=== PATIENT | male | born 1940 | race Caucasian/White ===

== ENCOUNTER 2017-07-23 13:38 | Observation (INO) | payer OTHER ==
[2017-07-23 14:11] LABS: PLATELET COUNT 204 10^3/uL (150-400)
[2017-07-23] MEDS ORDERED: ASPIRIN 81 MG CHEWABLE TAB PO ONE (14:12)
[2017-07-23] MEDS ORDERED: NITROGLYCERIN 0.4 MG BTL SL ONE (14:12)
--- NOTE | 2017-07-23 14:14 | CPEKG ---
Heart Rate: 78 RR Interval: 769 P-R Interval: 200 QRSD Interval: 160 QT Interval: 416 QTC Interval: 474 P [place]: 18 QRS [place]: -34 T Wave [place]: 121 EKG Severity - ABNORMAL ECG - EKG Impression: SINUS RHYTHM EKG Impression: PROBABLE LEFT ATRIAL ABNORMALITY EKG Impression: LEFT BUNDLE BRANCH BLOCK Electronically Signed By: Klaus Dickinson 23-Jul-2017 14:43:28
[2017-07-23] MEDS ORDERED: NITROGLYCERIN 2% 1 GM PACKET TP ONE (14:21)
--- NOTE | 2017-07-23 14:29 | EDPHY ---
H & P Stated Complaint: dizziness started today 1230, denies chest pain or shortness of breath Time Seen by Provider: 07/23/17 13:56 HPI/ROS: This patient complains of a woozy feeling in his head. Patient described the lightheadedness at 12:30 p.m. When he stood up from a seated position. This is occurred fleetingly in the past but he seemed to have persistent lightheadedness. He also describes a mild pressure headache that is generalized in location similar to prior headaches and has difficult this time describing exactly what he is feeling but because of his symptoms he checked his blood pressure at home was surprised to see that he was hypertensive-180s over 90s or issues usually 120s over 60s. Because of this dizzy feeling and his hypertension he came in for evaluation. He denies any other associated symptoms but does not recall feeling quite like this in the past. He does report slight lightheadedness. ROS: Constitutional: No recent fevers or chills. No significant fatigue. HEENT: He reports no recent URI symptoms or other HEENT complaints. No nasal congestion. Neuro: No focal numbness tingling weakness. No confusion. No word-finding difficulties. No vision changes. Pulmonary: No shortness of breath. No cough. Cardiovascular: He denies any chest pain. No heart palpitations. No arm pain jaw pain or neck pain. No pallor or other complaints. GI: No abdominal pain. No nausea or vomiting. Endocrine: No diaphoresis Integumentary: No complaints Psychiatric: No complaints Complete review of symptoms is otherwise negative. Source: Patient, Family (He is accompanied by his who drove him here by private vehicle) Exam Limitations: No limitations - Personal History Current Tetanus Diphtheria and Acellular Pertussis (TDAP): Unsure - Medical/Surgical History PMH: Otherwise healthy. He does not recall having a recent EKG. He does not recall being told that he has a left bundle branch block in the past. No prior history of hypertension Family history is negative for premature coronary artery disease Other PMH: denies medical or surgical - Family History Significant Family History: No pertinent family hx - Social History Smoking Status: Never smoked Alcohol Use: None Drug Use: None - Physical Exam Exam: Vital signs notable for mild hypertension 187/81. Other vitals are normal General Appearance: Alert, no distress. Eyes: Pupils equal and round no pallor or injection. ENT, Mouth: Mucous membranes moist. Respiratory: There are no retractions, lungs are clear to auscultation. Cardiovascular: Regular rate and rhythm. No murmur gallop rub. No peripheral edema. Gastrointestinal: Abdomen is soft and nontender, no masses, bowel sounds normal. Neurological: Cranial nerves 2-12 intact. He maintains normal cerebellar exam as evidence by symmetric rapid hand movements bilaterally. No pronator drift. GCS 15 with no focal deficits. Skin: Warm and dry, no rashes. Musculoskeletal: Neck is supple nontender. Extremities are symmetrical, full range of motion. Psychiatric: Mood and affect are normal. DIFFERENTIAL DIAGNOSIS: After history and physical exam differential diagnosis was considered for hypertensive emergency, viral illness, tension headache, anxiety, ischemic cardiac disease, metabolic disarray, benign positional vertigo , central vertigo Constitutional: Initial Vital Signs Temperature (C) 36.4 C 07/23/17 13:49 Heart Rate 82 07/23/17 13:49 Respiratory Rate 18 07/23/17 13:49 Blood Pressure 187/81 H 07/23/17 13:49 O2 Sat (%) 97 07/23/17 13:49 O2 Delivery Mode Room Air O2 (L/minute) 2 Allergies/Adverse Reactions: No Known Allergies Allergy (Unverified 07/23/17 13:48) Home Medications: Medication Instructions Recorded Multivitamin (OTC) 03/28/13 Medical Decision Making - Diagnostics EKG Interpretation: 12 lead EKG performed at 2:01 p.m. Reveals sinus rhythm at 78 Intervals: P R of 200, QRS of 160, QTC of 474 [place]: P of 80, QRS of -34, T of 121 Overall assessment sinus rhythm with left bundle branch block when compared to an EKG dated 01/28/2005 a bundle branch block is new. A repeat EKG performed at 14 30 reveals sinus rhythm at 81 with left bundle branch block with no interval change. ED Course/Re-evaluation: Discussion: Patient with vague symptoms including dizziness and hypertension with left bundle branch block as EKG. It is difficult to know if this is a longstanding bundle-branch block as his most recent EKG was dated 2004. Is a new bundle branch block since then. However his current symptoms do not sound ischemic in nature. Given his hypertension today and bundle-branch block and treat him with nitrates does see there is any interval change in his EKG or in his other symptoms. 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 IV Aspirin 324 Sublingual nitroglycerin followed by 0.5 in nitropaste Repeat EKG with no interval change by my interpretation. Cardiology was paged for consultation in this case at 2:32 p.m.. I spoke with Alexey Muhammad of [facility] at 2:50 p.m.. He agrees with plan for admission observation on telemetry. He requests hospitals admission with consult by cardiology. I spoke with Dr. Sanford, hospitalist [facility] accepts this patient for admission. Counseled patient regarding his current test results and plan for admission for further evaluation, serial cardiac enzymes and cardiology consult. At 3:15 p.m. Patient is comfortable with no active symptoms. He has been stable on the monitor throughout his stay. A bed is requested and pending - Data Points Laboratory Results: Laboratory Results 07/23/17 14:09 07/23/17 14:09 07/23/17 07/23/17 14:09 14:09 WBC 5.57 10^3/uL 10^3/uL (3.80-9.50) RBC 4.83 10^6/uL 10^6/uL (4.40-6.38) Hgb 15.3 g/dL g/dL (13.7-17.5) Hct 43.2 % % (40.0-51.0) MCV 89.4 fL fL (81.5-99.8) MCH 31.7 pg pg (27.9-34.1) MCHC 35.4 g/dL g/dL (32.4-36.7) RDW 13.1 % % (11.5-15.2) Plt Count 204 10^3/uL 10^3/uL (150-400) MPV 8.9 fL fL (8.7-11.7) Neut % (Auto) 53.7 % % (39.3-74.2) Lymph % (Auto) 33.9 % % (15.0-45.0) [place] % (Auto) 10.2 % % (4.5-13.0) Eos % (Auto) 1.3 % % (0.6-7.6) Baso % (Auto) 0.7 % % (0.3-1.7) Nucleat RBC Rel Count 0.0 % % (0.0-0.2) Absolute Neuts (auto) 2.99 10^3/uL 10^3/uL (1.70-6.50) Absolute Lymphs (auto) 1.89 10^3/uL 10^3/uL (1.00-3.00) Absolute Monos (auto) 0.57 10^3/uL 10^3/uL (0.30-0.80) Absolute Eos (auto) 0.07 10^3/uL 10^3/uL (0.03-0.40) Absolute Basos (auto) 0.04 10^3/uL 10^3/uL (0.02-0.10) Absolute Nucleated RBC 0.00 10^3/uL 10^3/uL (0-0.01) Immature Gran % 0.2 % % (0.0-1.1) Immature Gran # 0.01 10^3/uL 10^3/uL (0.00-0.10) Sodium 140 mEq/L mEq/L (135-145) Potassium 4.4 mEq/L mEq/L (3.5-5.2) Chloride 99 mEq/L mEq/L (97-110) Carbon Dioxide 25 mEq/l mEq/l (22-31) Anion Gap 16 mEq/L mEq/L (8-16) BUN 16 mg/dL mg/dL (7-23) Creatinine 0.9 mg/dL mg/dL (0.7-1.3) Estimated GFR > 60 Glucose 91 mg/dL mg/dL (70-100) Calcium 9.7 mg/dL mg/dL (8.5-10.4) Troponin I < 0.012 ng/mL ng/mL (0.000-0.034) Medications Given: Discontinued Medications Aspirin (Aspirin) 324 mg PO EDNOW ONE Stop: 07/23/17 14:13 Last Admin: 07/23/17 14:16 Dose: 324 mg Nitroglycerin (Nitrostat) 0.4 mg SL EDNOW ONE Stop: 07/23/17 14:13 Last Admin: 07/23/17 14:19 Dose: 1 tab Nitroglycerin (Nitro-Bid 2%) 0.5 inch TP EDNOW ONE Stop: 02/15/18 14:22 Last Admin: 07/23/17 14:28 Dose: 0.5 inch Departure - Departure Disposition: [facility] Inpatient Acute Clinical Impression: Lightheadedness, Left bundle branch block Hypertension Qualifiers: Hypertension type: unspecified Qualified Code(s): I10 - Essential (primary) hypertension Condition: Good Referrals: Tyler Montez MD [Primary Care Provider] - As per Instructions
--- NOTE | 2017-07-23 14:32 | CPEKG ---
Heart Rate: 81 RR Interval: 741 P-R Interval: 204 QRSD Interval: 152 QT Interval: 404 QTC Interval: 469 P [place]: 33 QRS [place]: -30 T Wave [place]: 121 EKG Severity - ABNORMAL ECG - EKG Impression: SINUS RHYTHM EKG Impression: LEFT BUNDLE BRANCH BLOCK Electronically Signed By: Klaus Dickinson 23-Jul-2017 14:43:17
--- NOTE | 2017-07-23 16:15 | PDGENHP ---
History and Physical History and Physical: CC: Pressure in the head HISTORY: This patient was feeling well until this morning when he started feel a lightheaded symptom that did not feel orthostatic and did not feel like he was going to fall or pain out, but he really describes more as a pressure in the head. There is no vertigo, and there was no headache and no neurologic abnormality symptom lo. He denies any come palpitations chest pain cough shortness of breath fevers nausea or any other symptoms with this. He has never experienced this syndrome before. He has had no change in medications, does not use alcohol, has not had nausea vomiting and has had good fluid intake recently. Despite the epidemic of flu and cold here he has not had any symptoms to suggest anything like that or any other infectious illness. Additionally he does mention to me that over period of months he has started to cut off the top of his socks because he is getting sock lines, though he denies any pain in his legs any shortness of breath, any pleuritic pains. There is no history of heart or lung illness at all At the emergency room in [place] the patient was noted to have significant hypertension. He has no previous history of hypertension but has not had a blood pressure check for over a year. He has not used any decongestants or any other stimulants, does not drink alcohol or have anything else that would cause blood pressure that way ROS: A comprehensive 10 system review revealed no other significant findings PAST MEDICAL HISTORY: Obesity Diverticulosis Colon polyps Kidney stones FAMILY MEDICAL HISTORY: Breast and gastric cardia insulinoma as SOCIAL HISTORY: lives with his is here with him Has never smoked or used alcohol Retired from working at [employer]. Had some exposures but has never been known to have any kind of illness related to his exposures there. MEDICATIONS: The patients list has been reconciled by our clinical pharmacist in the EMR. I have reviewed the list and ordered appropriate medicines. PHYSICAL EXAMINATION: Vital Signs: Initial blood pressure systolic 180 for diastolics okay. The systolic has drifted spontaneously down to 160 now. Other vitals normal no fever Director Of Research: Sinus rhythm Examination: General: alert, oriented, good mentation, relaxed Skin: warm, dry, good color, no rash HEENT: normal Neck: no mass or jvd Resps: relaxed Lungs: clear breath sounds Heart: regular, no murmur Abdomen: soft, nondistended, nontender, +BS, no mass Upper Extremities: normal Lower Extremities: Very mild bilateral ankle, edema, warm No Bleeding or bruising Neurologic: normal speech/language, normal film spooler, no focal weakness IV site: looks normal LABORATORY DATA: Unremarkable CBC metabolic panel and troponin RADIOLOGY STUDIES: None done as of yet 12 LEAD EKG: A 12 lead EKG was done at the [facility] emergency room. At this time I am unable to get into the EKG software, but the ER doctor did inform me that there was left bundle branch block which was new since 10 years ago ASSESSMENT: -symptomatic severe hypertension, new onset of hypertension at this time; no evidence of end-organ injury at present though would consider the possibility of hypertensive left ventricular disease -new LBBB -trace bipedal edema with a history of the patient noticing the same at home over several months; consider hypertensive heart disease or potentially pulmonary hypertension from sleep apnea as possible causes -obesity PLANS: -place on obs on residential monitor -begin antiHTN therapy; a diuretic might be a good choice to start with since he does have some slight edema so use lisinopril and hydrochlorothiazide for now -repeat troponins and EKG since he has a new left bundle branch block but doubt that there is anything here that is a new coronary syndrome; would only do stress testing or other risk stratification at this time if there was something more significant either symptom lo or on repeat blood testing -will get an echo as he has some by pedal ankle edema. Possible causes could include hypertensive heart disease or in a man of his stature sleep apnea and pulmonary hypertension I have reviewed the patient's case in detail with Dr. Klaus Dickinson I have reviewed the patient's past medical records as part of this assessment, including prior clinic records with diagnoses, blood tests, vital signs
[2017-07-23] MEDS ORDERED: ONDANSETRON 4 MG/2 ML VIAL IVP PRN (19:25)
[2017-07-23] MEDS ORDERED: ACETAMINOPHEN 325 MG TAB PO PRN (19:25)
[2017-07-23] MEDS ORDERED: ZOLPIDEM TARTRATE 5 MG TAB PO PRN (19:25)
[2017-07-23] MEDS ORDERED: LISINOPRIL 10 MG TAB PO ONE (21:30)
--- NOTE | 2017-07-23 23:39 | PDGENHP ---
History and Physical History and Physical: CC: Pressure in the head HISTORY: This patient was feeling well until this morning when he started feel a lightheaded symptom that did not feel orthostatic and did not feel like he was going to fall or pain out, but he really describes more as a pressure in the head. There is no vertigo, and there was no headache and no neurologic abnormality symptom lo. He denies any come palpitations chest pain cough shortness of breath fevers nausea or any other symptoms with this. He has never experienced this syndrome before. He has had no change in medications, does not use alcohol, has not had nausea vomiting and has had good fluid intake recently. Despite the epidemic of flu and cold here he has not had any symptoms to suggest anything like that or any other infectious illness. Additionally he does mention to me that over period of months he has started to cut off the top of his socks because he is getting sock lines, though he denies any pain in his legs any shortness of breath, any pleuritic pains. There is no history of heart or lung illness at all At the emergency room in [place] the patient was noted to have significant hypertension. He has no previous history of hypertension but has not had a blood pressure check for over a year. He has not used any decongestants or any other stimulants, does not drink alcohol or have anything else that would cause blood pressure that way ROS: A comprehensive 10 system review revealed no other significant findings PAST MEDICAL HISTORY: Obesity Diverticulosis Colon polyps Kidney stones FAMILY MEDICAL HISTORY: Breast and gastric cardia insulinoma as SOCIAL HISTORY: lives with his is here with him Has never smoked or used alcohol Retired from working at [employer]. Had some exposures but has never been known to have any kind of illness related to his exposures there. MEDICATIONS: The patients list has been reconciled by our clinical pharmacist in the EMR. I have reviewed the list and ordered appropriate medicines. PHYSICAL EXAMINATION: Vital Signs: Initial blood pressure systolic 180 for diastolics okay. The systolic has drifted spontaneously down to 160 now. Other vitals normal no fever Keyseater Operator: Sinus rhythm Examination: General: alert, oriented, good mentation, relaxed Skin: warm, dry, good color, no rash HEENT: normal Neck: no mass or jvd Resps: relaxed Lungs: clear breath sounds Heart: regular, no murmur Abdomen: soft, nondistended, nontender, +BS, no mass Upper Extremities: normal Lower Extremities: Very mild bilateral ankle, edema, warm No Bleeding or bruising Neurologic: normal speech/language, normal coroner, no focal weakness IV site: looks normal LABORATORY DATA: Unremarkable CBC metabolic panel and troponin RADIOLOGY STUDIES: None done as of yet 12 LEAD EKG: A 12 lead EKG was done at the [facility] emergency room. At this time I am unable to get into the EKG software, but the ER doctor did inform me that there was left bundle branch block which was new since 10 years ago ASSESSMENT: -symptomatic severe hypertension, new onset of hypertension at this time; no evidence of end-organ injury at present though would consider the possibility of hypertensive left ventricular disease -new LBBB with last EKG 10+ yrs ago -trace bipedal edema with a history of the patient noticing the same at home over several months; consider hypertensive heart disease or potentially pulmonary hypertension from sleep apnea as possible causes -obesity PLANS: -place on obs on monitoring and evaluation advisor -begin antiHTN therapy; a diuretic might be a good choice to start with since he does have some slight edema so use lisinopril and hydrochlorothiazide for now -repeat troponins and EKG since he has a new left bundle branch block but doubt that there is anything here that is a new coronary syndrome; would only do stress testing or other risk stratification at this time if there was something more significant either symptom lo or on repeat blood testing -will get an echo as he has some by pedal ankle edema. Possible causes could include hypertensive heart disease or in a man of his stature sleep apnea and pulmonary hypertension I have reviewed the patient's case in detail with Dr. Klaus Dickinson I have reviewed the patient's past medical records as part of this assessment, including prior clinic records with diagnoses, blood tests, vital signs
[2017-07-24 07:25] VITALS: O2SAT 93
[2017-07-24] MEDS ORDERED: LISINOPRIL/HCTZ 10/12.5 MG 1 EA TAB PO ONE (08:00)
--- NOTE | 2017-07-24 08:45 | CPEKG ---
Heart Rate: 61 RR Interval: 984 P-R Interval: 204 QRSD Interval: 158 QT Interval: 488 QTC Interval: 492 P [place]: 15 QRS [place]: -37 T Wave [place]: 119 EKG Severity - ABNORMAL ECG - EKG Impression: SINUS RHYTHM EKG Impression: LEFT BUNDLE BRANCH BLOCK Electronically Signed By: Alexey Muhammad 24-Jul-2017 09:43:40
[2017-07-24] MEDS ORDERED: CHOLECALCIFEROL VIT D3 1,000 UNITS TAB PO SCH (09:00)
[2017-07-24] MEDS ORDERED: VITAMIN B COMPLEX 1 EA CAP/TAB PO SCH (09:00)
[2017-07-24] MEDS ORDERED: CALCIUM CARBONATE 500 MG TAB PO SCH (09:00)
[2017-07-24] MEDS ORDERED: MULTIVITAMINS 1 EACH TAB PO SCH (09:00)
[2017-07-24] MEDS ORDERED: ASPIRIN 81 MG CHEWABLE TAB PO SCH (09:00)
[2017-07-24] MEDS ORDERED: REGADENOSON 0.4 MG/5 ML SYR IVP ONE (10:39)
--- NOTE | 2017-07-24 13:02 | CPR ---
[f rep st] NONINVASIVE CARDIAC PROCEDURE REPORT DATE OF PROCEDURE: 07/24/2017 PROCEDURE PERFORMED: Lexiscan nuclear stress test. REASON FOR TEST: Hypertension, left bundle branch block, and shortness of breath. PREPROCEDURE FINDINGS: Resting EKG showed a left bundle branch block with a ventricular rate of 65, sinus rhythm. Resting blood pressure 136/70. Resting heart rate 65. Oxygen saturation 96%. He had complaints of back discomfort. No chest pain or shortness of breath. STRESS PORTION: Lexiscan was injected rapidly, followed by saline flush. Cardiolite was then inject ed, followed by saline flush. He did feel flushed, with headache and shortness of breath. Peak hear t rate 80. Peak blood pressure 120/64. Oxygen saturation 98%. There were no EKG changes. RECOVERY: He did spontaneously recover. Resting blood pressure 130/74. Resting heart rate 77. Oxy gen saturation 98%. His headache did go away, as did his shortness of breath. He was given caffeine . At this time, he currently is stable for nuclear imaging. /[id number]/MODL
[2017-07-24 13:32] VITALS: BP 143/74; PULSE 72; RESP 12; TEMP 97.6
--- NOTE | 2017-07-24 13:47 | PDCARCONS ---
Cardiology Consult Reason for Consult: Pressure in head (which corresponded to elevated blood pressure) and "new" LBBB pattern on ECG Chief Complaint: new blood pressure issues Requesting Physician: Hospitalist Team History of Present Illness: Patient is a 77 y/o male with unremarkable past cardiovascular history (no CAD, HTN, HLP, or DM), who presented to [facility] ER with complaints of pressure in his head. No complaints of chest pains or pressure, no PND or orthopnea, no dyspnea, diaphoresis, or dizziness. Symptoms were noted with dinner the night before, and trial outside with cooler air did not alleviate symptoms. Blood pressure at home was noted to more elevated than is typical for the patient, and so ER visit was sought. Today, the patient is feeling very well. No further head discomfort is noted, but blood pressure continues to be more elevated than the patient has noted in the past. No mention of "bundle branch block" was noted in the past (annual PCP follow up note with Dr. Andrea Montez was reviewed with no mention of LBBB pattern to the ECG in the note. , present with the patient today, did not recall any report of abnormal ECG either. 12 point review of systems outside of that which was mentioned above, was unremarkable. History Information - Allergies/Home Medication List Allergies/Adverse Reactions: No Known Allergies Allergy (Unverified 07/23/17 13:48) Home Medications: Aspirin [Aspirin 81mg (*)] 81 mg PO DAILY 07/23/17 [Last Taken 07/23/17] Calcium Carbonate [Oyster Shell Calcium 500 mg (*)] 500 mg PO DAILY 07/23/17 [ Last Taken 07/23/17] Cholecalciferol Vit D3 [Vitamin D3 (*)] 1,000 units PO DAILY 07/23/17 [Last Taken 07/23/17] Cyanocobalamin/Folic AC/Vit B6 [B Complex-Folic Acid Tablet] 1 each PO DAILY [Last Taken 07/23/17] Multivitamins [Multivitamin (*)] 1 each PO DAILY 07/23/17 [Last Taken 07/23/17] I have personally reviewed and updated: family history, medical history, social history, surgical history Past Medical History: - Past Medical History Additional medical history: nephrolithiasis - Surgical History Reports: no pertinent surgical hx - Family History Positive for: hypertension - Social History Smoking Status: Never smoked Alcohol Use: None Drug Use: None Cardiac History - Cardiac History Cardiac Risk Factors: age > 65, male Timing/Duration: Hours Severity: moderate Severity Scale: 4 Location: other (head pressure) Activities at Onset: none Modifying Factors: improves with: rest Associated Symptoms: denies symptoms NIKIA Risk Evaluation age greater or equal to 65: yes greater or equal to 3 CAD risk factors: no known CAD(stenosis greater or eqaul to 50%): no ASA use in past 7 days: yes severe angina(greater or equal to 2 episodes in 24hrs): no EKG ST changes greater or equal to 0.5mm: no positive cardiac marker: no Total Score: 2 NIKIA Score: 8.3% risk Physical Exam Physical Exam: Temp Pulse Resp BP Pulse Ox 36.4 C 72 12 143/74 H 93 07/24/17 12:00 07/24/17 12:00 07/24/17 12:00 07/24/17 12:00 07/24/17 12:00 O2 (L/minute) 2 Constitutional: no apparent distress, appears nourished, not in pain Eyes: PERRL Ears, Nose, Mouth, Throat: moist mucous membranes, hearing normal, ears appear normal Cardiovascular: regular rate and rhythym, no murmur, rub, or gallop, pulses symmetric bilaterally, No JVD Peripheral Pulses: 2+: dorsalis-pedis (R), dorsalis-pedis (L) Respiratory: no respiratory distress, no rales or rhonchi, clear to auscultation Gastrointestinal: normoactive bowel sounds Skin: warm, normal color Musculoskeletal: full muscle strength Neurologic: AAOx3, sensation intact bilaterally, CN II-XII Intact Psychiatric: interacting appropriately, not anxious, not encephalopathic Lab and Imaging 07/23/17 14:09 07/24/17 03:52 WBC 5.57 10^3/uL (3.80-9.50) 07/23/17 14:09 RBC 4.83 10^6/uL (4.40-6.38) 07/23/17 14:09 Hgb 15.3 g/dL (13.7-17.5) 07/23/17 14:09 Hct 43.2 % (40.0-51.0) 07/23/17 14:09 MCV 89.4 fL (81.5-99.8) 07/23/17 14:09 MCH 31.7 pg (27.9-34.1) 07/23/17 14:09 MCHC 35.4 g/dL (32.4-36.7) 07/23/17 14:09 RDW 13.1 % (11.5-15.2) 07/23/17 14:09 Plt Count 204 10^3/uL (150-400) 07/23/17 14:09 MPV 8.9 fL (8.7-11.7) 07/23/17 14:09 Neut % (Auto) 53.7 % (39.3-74.2) 07/23/17 14:09 Lymph % (Auto) 33.9 % (15.0-45.0) 07/23/17 14:09 Cowley % (Auto) 10.2 % (4.5-13.0) 07/23/17 14:09 Eos % (Auto) 1.3 % (0.6-7.6) 07/23/17 14:09 Baso % (Auto) 0.7 % (0.3-1.7) 07/23/17 14:09 Nucleat RBC Rel Count 0.0 % (0.0-0.2) 07/23/17 14:09 Absolute Neuts (auto) 2.99 10^3/uL (1.70-6.50) 07/23/17 14:09 Absolute Lymphs (auto) 1.89 10^3/uL (1.00-3.00) 07/23/17 14:09 Absolute Monos (auto) 0.57 10^3/uL (0.30-0.80) 07/23/17 14:09 Absolute Eos (auto) 0.07 10^3/uL (0.03-0.40) 07/23/17 14:09 Absolute Basos (auto) 0.04 10^3/uL (0.02-0.10) 07/23/17 14:09 Absolute Nucleated RBC 0.00 10^3/uL (0-0.01) 07/23/17 14:09 Immature Gran % 0.2 % (0.0-1.1) 07/23/17 14:09 Immature Gran # 0.01 10^3/uL (0.00-0.10) 07/23/17 14:09 Sodium 140 mEq/L (135-145) 07/24/17 03:52 Potassium 4.6 mEq/L (3.5-5.2) 07/24/17 03:52 Chloride 105 mEq/L (97-110) 07/24/17 03:52 Carbon Dioxide 28 mEq/l (22-31) 07/24/17 03:52 Anion Gap 7 mEq/L (8-16) L 07/24/17 03:52 BUN 17 mg/dL (7-23) 07/24/17 03:52 Creatinine 0.9 mg/dL (0.7-1.3) 07/24/17 03:52 Estimated GFR > 60 07/24/17 03:52 Glucose 82 mg/dL (70-100) 07/24/17 03:52 Calcium 9.4 mg/dL (8.5-10.4) 07/24/17 03:52 Troponin I < 0.012 ng/mL (0.000-0.034) 07/24/17 03:52 Visualized and Interpreted EKG results: Yes EKG Interpretation: Positive for: left bundle branch block, normal sinsus rhythm Telemetry: normal sinus rhythm with LBBB pattern A/P Assessment: Patient is a 77 y/o male with no prior CV history (no CAD, HTN, HLP, or DM), who presented to [facility] ER of [facility] with complaints of "head pressure". Elevation in blood pressure was noted as well as a LBBB pattern on ECG (new). No chest pains or pressure, no cardiac biomarker elevation. Blood pressures are better today (on ACEi therapy). Stress testing was recommended (and completed prior to this note being typed) without ischaemia or infarction patterns noted. Normal left ventricular systolic ejection fraction was also noted. Plan: Would begin therapy for HTN with ACEi as at present. Patient should follow up with PCP and/or cardiology in one week for blood pressure reassessment. Ensure that annual assessment of cholesterol is undertaken. Regular and routine exercise is recommended. Patient and were in agreement with these plans.
[2017-07-24] MEDS ORDERED: PNEUMOC 13-VAL CONJ-DIP CRM/PF 0.5 ML SYR IM ONE (14:53)
--- NOTE | 2017-07-24 15:29 | GDS ---
[f rep st] DISCHARGE SUMMARY ACUTE DIAGNOSES ON ADMISSION: 1. Acute hypertension. 2. New left bundle branch block. 3. New peripheral edema. CHRONIC DIAGNOSES: 1. Obesity. 2. Diverticulosis. 3. Colon polyps. 4. Kidney stones. CONSULTATIONS: Cardiology. PROCEDURES: Myocardial perfusion nuclear scan, with rest and exercise stress images. Showed no evid ence of fixed or reversible myocardial ischemia, with an ejection fraction of 60%. HISTORY OF PRESENT ILLNESS: This is a 77-year-old gentleman who presented with moderate hypertension to the emergency department. Blood pressure is 187/81. He had a headache associated with this. Bl ood pressure was brought under control in the usual fashion. The ECG noted a newer left bundle branc h block, and as his blood pressure was then in good control, a stress nuclear cardiac scan was perfor med. This scan showed no evidence of fixed or reversible cardiac ischemia, and an ejection fraction of 60%. This was a normal study. As this gentleman had not previously been on any antihypertensive, and due to his peripheral edema, h e was placed on an MABEL inhibitor, along with hydrochlorothiazide. DISCHARGE MEDICATIONS: New medications: Lisinopril/hydrochlorothiazide 10/12.5 mg tablet 1 daily. Continued medications: Vitamin B complex, vitamin D3, calcium, aspirin 81 mg a day, multivitamin. PLAN: This gentleman will be discharged to home. The findings of his study have been discussed with him and his . All questions were answered. The followup will be with Dr. Alexey Hurley within 1 week. The PCP is Dr. Tyler Montez, whom he will see on a p.r.n. basis for ongoing blood pressure mon itoring and management. TIME: This discharge required 40 minutes, greater than 50% to residential youth counselor and coordinate his care. /[id number]/MODL
== END 2017-07-24 15:38 | disposition home or self-care (01) ==
LOC: CED 13:38 → CEDHOLD 15:19 → INTOOBSV 15:19 → F2W 17:34
PROVIDERS: ADMIT Internal Medicine; ATTEND Internal Medicine Pulmonary Disease
DX: I44.7 Left bundle-branch block, unspecified (principal); I10 Essential (primary) hypertension; R60.0 Localized edema; Z23 Encounter for immunization; E66.9 Obesity, unspecified; Z86.010 Personal history of colon polyps; Z87.442 Personal history of urinary calculi; Z68.30 Body mass index [BMI] 30.0-30.9, adult
CPT/HCPCS: 78452; 90670; 93005; 93017; 99285; A9500; G0009; G0378; J2785; 80048-PO; 84484-PO; 85025-PO